=== PATIENT | male | born 1970 | race Asian ===

== ENCOUNTER → 2025-03-17 | Outpatient (CLI) | payer MEDICAID, SELFPAY ==
--- NOTE | 2025-03-17 | XR_ITS ---
Examination: PA lateral chest 2 views TECHNIQUE: Upright PA lateral chest 2 views Date and time: March 17, 2025 1305 hours INDICATIONS: Clinical diagnosis tuberculosis FINDINGS: Normal heart size. Lungs are clear. Moderate osteopenia. IMPRESSION: No active disease No radiographic findings of tuberculosis
== END | disposition home or self-care (01) ==
PROVIDERS: PCP Physician Assistant; Referring Provider Physician Assistant; Visit Provider Physician Assistant
DX: R76.11 Nonspecific reaction to tuberculin skin test without active tuberculosis (principal)
CPT/HCPCS: 71046